=== PATIENT | female | born 1980 | race Caucasian/White ===

== ENCOUNTER 2017-03-17 08:22 | Emergency (ER) | payer SELFPAY ==
[2017-03-17 08:25] VITALS: BP 138/91; BMI 29.7
[2017-03-17] MEDS ORDERED: VALIUM INJ IM ONE (08:49)
--- NOTE | 2017-03-17 08:49 | DR.FBACK ---
HPI - Time Seen Time seen: 08:45 - PCP Primary Care Physician: Octavia ISAACS - Complaint Chief Complaint Doctor Comments: Patient states that when she attempted to get off the sofa yesterday, her back started to hurt on the left side. Pain not relieved by acetaminophen aggravated by motion, sharp 10/10. She denies urinary frequency,urgency or urinary pain. Chief Complaint:: PT. C/O LOWER BACK PAIN THAT STARTED YESTERDAY WHEN SHE TRIED TO GET OFF OF THE COUCH. - Source History Provided: Patient - Mode of Arrival Mode of Arrival: Ambulatory - Timing Onset of Chief Complaint: 03/16/17 PMH - PMH Past Medical History: Yes Past Medical History: Hypertension Past Surgical History: Yes Surgical History: , STONER OUT Surgery - Family History History of Family Medical Conditions: Yes Family Medical History: DC - Social History Does patient currently use any type of tobacco product: Yes Have you used tobacco products in the last 12 months: Yes Type of Tobacco Use: Cigarettes Does any household member use tobacco: No Alcohol Use: None Do you use any recreational Drugs:: No Lives With: Spouse Lives Where: Home - infectious screening In the last 2 months have you had wt loss of >10#?: NO Have you had fever, night sweats or hemotysis?: No Have you traveled outside the country in the last 6 months?: No Isolation: Standard ROS - Review of Systems Eyes: No Symptoms Reported ENTM: No Symptoms Reported Respiratoy: No Symptoms Reported Cardiovascular: No Symptoms Reported Gastrointestinal/Abdominal: No Symptoms Reported Genitourinary: No Symptoms Reported Neurological: No Symptoms Reported Musculoskeletal: Back Pain (Left lower quadrant), Leg (Straight leg raising 45 degrees illicit back pain both sides.) Integumentary: No Symptoms Reported Hematologic/Lymphatic: No Symptoms Reported Endocrine: No Symptoms Reported Psychiatric: No Symptoms Reported All Other Systems: Reviewed and Negative PE - Vitals Vital Signs: Temp Pulse Resp BP Pulse Ox 03/17/17 08:23 97.6 F 77 17 138/91 97 - General General Appearance: Alert, In No Apparent Distress - Head Head Exam: Normal Inspection, Atraumatic - Eyes Eye exam: Normal Appearance, PERRL, EOMI - ENT ENT Exam: Normal Exam, Normal Oropharynx - Chest Chest Inspection: Normal Inspection - Respiratory Respiratory Exam: Normal Lung Sounds Bilat Respiratory Exam: Bilateral Clear to Auscultation - Cardiovascular Cardiovascular Exam: Regular Rate, Normal Rhythm - Abdominal Exam Abdominal Exam: Normal Inspection Abdominal Tenderness: negative: RUQ, RLQ, LUQ, LLQ, Epigastrium, Suprapubic, Diffuse, Mild, Moderate, Severe, Other - Genitourinary External Exam: Female: Deferred : Speculum Exam (Female): Deferred : Bimanual Exam (female): Deferred - Extremities Extremities Exam: Other (Straight leg raising ilicit back pain) - Back Back Exam: Muscle Spasm (forward bending ililic back pain) - Neurological Neurological Exam: Alert, Oriented X3, CN II-XII Intact - Psychiatric Psychiatric Exam: Normal Affect - Skin Skin Exam: Warm, Dry - Diagnosis Discharge Problem: Muscle spasm of back - Discharge Plan Condition: Stable - Follow ups/Referrals Follow ups/Referrals: KRISTINE ISAACS [Primary Care Provider] - 3 days - Instructions
[2017-03-17] MEDS ORDERED: VALIUM INJ ONE (08:51)
[2017-03-17] MEDS ORDERED: TORADOL 60 MG VIAL IM ONE (09:01)
[2017-03-17] MEDS ORDERED: TORADOL 60 MG VIAL ONE (09:15)
== END 2017-03-17 09:45 | disposition home or self-care (01) ==
LOC: ER 08:30
DX: M62.830 Muscle spasm of back (principal)
CPT/HCPCS: 96372; 99282; J1885; J3360